=== PATIENT | female | born 1990 | race Caucasian/White ===

== ENCOUNTER 2016-08-22 07:10 | Emergency (ER) | payer OTHER ==
[~2016-08-22] VITALS: Ht 154.9 cm; Wt 83.9 kg
[~2016-08-22 07:10] MED LIST: CIPR500T94 PO; HYDR-79 PO; OXYC-323 PO; SULF1TAB24 PO
[2016-08-22] MEDS ORDERED: METOCLOPRAMIDE HCL 10 MG/2 ML VIAL. IV ONE (07:45)
[2016-08-22] MEDS ORDERED: DIPHENHYDRAMINE 50 MG/ML VIAL IVP ONE (07:45)
[2016-08-22] MEDS ORDERED: IV NORMAL SALINE 1,000ML 1,000 ML IV ONE (07:45)
[2016-08-22] MEDS ORDERED: FENTANYL PF 100 MCG/2 ML VIAL. IV ONE (08:15)
[2016-08-22 08:48] VITALS: BP 104/57
[2016-08-22] MEDS ORDERED: ONDA4TAB10 SL (08:50)
--- NOTE | 2016-08-22 08:57 | ED.ADGEN ---
Past History Past Medical History: Anxiety, Migraines Past Surgical History: Other Smoking: Cigarettes Alcohol Use: None Drug Use: Marijuana Adult General Chief Complaint Chief Complaint migraine HPI HPI Patient is a 25 year old female who presents with migraine headache that started yesterday. Patient had associated nausea with vomiting. She is 10 weeks , . She denies any abdominal pain, vaginal discharge or bleeding. She is attempted her Maxalt at home for her migraine which did not relieve her symptoms. She denies any fevers, reports some sinus congestion, no cough. She has a history of migraines, states this does feel typical. Her pet food deboner is Dr. Martínez Review of Systems Review of Systems Constitutional: Denies fever or chills [] Eyes: Denies change in visual acuity, redness, or eye pain [] HENT: Deniessore throat [] Respiratory: Denies cough or shortness of breath [] Cardiovascular: denies cp GI: Denies abdominal pain, nausea, vomiting, bloody stools or diarrhea [] : Denies dysuria or hematuria [] Musculoskeletal: Denies back pain or joint pain [] Integument: Denies rash or skin lesions [] Neurologic: Denies focal weakness or sensory changes [] Current Medications Current Medications Current Medications Medications (Trade) Dose Ordered Sig/Jam Start Time Stop Time Status Last Admin Dose Admin Diphenhydramine HCl 25 mg 25 mg 1X ONCE 08/22/16 07:45 08/22/16 07:46 DC 08/22/16 08:00 25 MG Fentanyl Citrate (Fentanyl 2ml Vial) 50 mcg 1X ONCE 08/22/16 08:15 08/22/16 08:16 DC 08/22/16 08:11 50 MCG Metoclopramide HCl (Reglan) 10 mg 1X ONCE 08/22/16 07:45 08/22/16 07:46 DC 08/22/16 07:59 10 MG Sodium Chloride (Iv Sodium Chloride 0.9% 1,000ml) 1,000 ml @ 1,000 mls/hr 1X ONCE 08/22/16 07:45 08/22/16 08:44 DC 08/22/16 07:59 1,000 MLS/HR Allergies Allergies Allergies Coded Allergies Type Severity Reaction Last Updated Verified prochlorperazine Allergy Intermediate rash 08/22/16 Yes promethazine Allergy Intermediate rash 08/22/16 Yes Physical Exam Physical Exam Constitutional: Well developed, well nourished, no acute distress, non-toxic appearance.photophobia HENT: Normocephalic, atraumatic, bilateral external ears normal, oropharynx moist, no oral exudates, nose normal. [] Eyes: PERRLA, EOMI, conjunctiva normal, no discharge. [] Neck: Normal range of motion, no tenderness, supple, no stridor. [] Cardiovascular:Heart rate regular with regular rhythm, no murmur [] Lungs & Thorax: Bilateral breath sounds clear to auscultation [] Abdomen: Bowel sounds normal, soft, no tenderness, no masses, no pulsatile masses. [] Skin: Warm, dry, no erythema, no rash. [] Back: No tenderness, no CVA tenderness. [] Extremities: No tenderness, no cyanosis, no clubbing, ROM intact, no edema. [] Neurologic: Alert and oriented X 3, normal motor function, normal sensory function, no focal deficits noted. CN II-XII intact Psychologic: Affect normal, judgement normal, mood normal. [] Current Patient Data Vital Signs Vital Signs Date Time Temp Pulse Resp B/P Pulse Ox O2 Delivery O2 Flow Rate FiO2 08/22/16 08:48 71 20 104/57 99 Room Air 08/22/16 07:10 97.8 EKG EKG [] Radiology/Procedures Radiology/Procedures [] Course & Med Decision Making Course & Med Decision Making Pertinent Labs and Imaging studies reviewed. (See chart for details) said she will get a ride. IV established, IV Benadryl and Reglan given along with 1 L of IV fluids. Patient became anxious after she was given the medications. She is given 50 g of fentanyl and this almost instantaneously made her anxiety resolved. She states her headache resolved and she was discharged in improved condition. She was given few Zofran ODT tablets and instructed to follow-up with OB doctor. Final Impression Final Impression Migraine headache in [] Problems: Dragon Disclaimer Dragon Disclaimer This electronic medical record was generated, in whole or in part, using a voice recognition dictation system. IVONNE HAAS MD Aug 22, 2016 08:57
== END 2016-08-22 08:55 | disposition home or self-care (01) ==
LOC: ER 07:14
DX: O26.891 Other specified pregnancy related conditions, first trimester (principal); G43.909 Migraine, unspecified, not intractable, without status migrainosus; R11.2 Nausea with vomiting, unspecified; O99.331 Smoking (tobacco) complicating pregnancy, first trimester; F12.10 Cannabis abuse, uncomplicated; Z3A.10 10 weeks gestation of pregnancy; Z88.8 Allergy status to other drugs, medicaments and biological substances
CPT/HCPCS: 96361; 96374; 96375; 99284; J1200; J2765; J3010; J7030

== ENCOUNTER 2016-08-23 17:12 | Emergency (ER) | payer OTHER ==
[~2016-08-23] VITALS: Ht 154.9 cm; Wt 68.0 kg
[~2016-08-23 17:12] MED LIST changes: +ONDA4TAB10 SL
[2016-08-23] MEDS: IV NORMAL SALINE 1,000ML 1,000 ML IV ONE ×2 (19:06→19:54)
[2016-08-23] MEDS: DIPHENHYDRAMINE 50 MG/ML VIAL IVP ONE (19:07)
[2016-08-23] MEDS: FENTANYL PF 100 MCG/2 ML VIAL. IV ONE ×3 (19:08→21:21)
[2016-08-23] MEDS: METOCLOPRAMIDE HCL 10 MG/2 ML VIAL. IV ONE (19:09)
[2016-08-23 21:21] VITALS: BP 95/52
--- NOTE | 2016-08-23 22:15 | ED.ADGEN ---
Past History Past Medical History: Anxiety Past Surgical History: Other Smoking: Cigarettes Alcohol Use: None Drug Use: None Adult General HPI HPI Patient is a 25-year-old female presents emergency department complaining of headache. She describes she has had previous migraine headaches identical to this one. The pain is primarily behind her right high. She was seen and treated yesterday for the same complaint. She states that she felt well for a few hours but then her pain gradually increased. She denies any other new injury, trauma, or illness. Review of Systems Review of Systems Constitutional: Denies fever or chills [] Eyes: Denies change in visual acuity, redness, or eye pain [] HENT: Denies nasal congestion or sore throat [] Respiratory: Denies cough or shortness of breath [] Cardiovascular: No additional information not addressed in HPI [] GI: Denies abdominal pain, nausea, vomiting, bloody stools or diarrhea [] : Denies dysuria or hematuria [] Musculoskeletal: Denies back pain or joint pain [] Integument: Denies rash or skin lesions [] Neurologic: Denies headache, focal weakness or sensory changes [] Endocrine: Denies polyuria or polydipsia [] Current Medications Current Medications Current Medications Medications (Trade) Dose Ordered Sig/Jam Start Time Stop Time Status Last Admin Dose Admin Diphenhydramine HCl (Benadryl) 25 mg 1X ONCE 08/23/16 18:30 08/23/16 18:31 DC 08/23/16 19:07 25 MG Fentanyl Citrate (Fentanyl 2ml Vial) 25 mcg 1X ONCE 08/23/16 21:30 08/23/16 21:31 DC 08/23/16 21:21 25 MCG Fentanyl Citrate 50 mcg 50 mcg 1X ONCE 08/23/16 18:45 08/23/16 18:46 DC 08/23/16 19:08 50 MCG Metoclopramide HCl (Reglan) 10 mg 1X ONCE 08/23/16 18:45 08/23/16 18:46 DC 08/23/16 19:09 10 MG Sodium Chloride (Iv Sodium Chloride 0.9% 1,000ml) 1,000 ml @ 1,000 mls/hr 1X ONCE 08/23/16 20:00 08/23/16 20:59 DC 08/23/16 19:54 1,000 MLS/HR Allergies Allergies Allergies Coded Allergies Type Severity Reaction Last Updated Verified metoclopramide Allergy Intermediate anxiety 08/22/16 Yes prochlorperazine Allergy Intermediate rash 08/22/16 Yes promethazine Allergy Intermediate rash 08/22/16 Yes Physical Exam Physical Exam Constitutional: Well developed, well nourished, no acute distress, non-toxic appearance. [] HENT: Normocephalic, atraumatic, bilateral external ears normal, oropharynx moist, no oral exudates, nose normal. [] Eyes: PERRLA, EOMI, conjunctiva normal, no discharge. [] Neck: Normal range of motion, no tenderness, supple, no stridor. [] Cardiovascular:Heart rate regular rhythm, no murmur [] Lungs & Thorax: Bilateral breath sounds clear to auscultation [] Abdomen: Bowel sounds normal, soft, no tenderness, no masses, no pulsatile masses. [] Skin: Warm, dry, no erythema, no rash. [] Back: No tenderness, no CVA tenderness. [] Extremities: No tenderness, no cyanosis, no clubbing, ROM intact, no edema. [] Neurologic: Alert and oriented X 3, normal motor function, normal sensory function, no focal deficits noted. [] Psychologic: Affect normal, judgement normal, mood normal. [] Current Patient Data Vital Signs Vital Signs Date Time Temp Pulse Resp B/P Pulse Ox O2 Delivery O2 Flow Rate FiO2 08/23/16 21:21 70 20 95/52 97 Room Air 08/23/16 17:38 97.9 EKG EKG [] Radiology/Procedures Radiology/Procedures [] Course & Med Decision Making Course & Med Decision Making Pertinent Labs and Imaging studies reviewed. (See chart for details) Again the patient states that her symptoms have resolved after IV fluids, Reglan , oxygen, Benadryl, and fentanyl. Patient was urged to follow-up with her OB/ [facility] or her primary care physician for these headaches. She will of course return emergency department sooner she develops new or worsening symptoms. [] Final Impression Final Impression Migraine headache [] Problems: Dragon Disclaimer Dragon Disclaimer This electronic medical record was generated, in whole or in part, using a voice recognition dictation system. ALICIA CHAVES MD Aug 23, 2016 22:15
== END 2016-08-23 21:31 | disposition home or self-care (01) ==
LOC: ER 17:12
DX: G43.909 Migraine, unspecified, not intractable, without status migrainosus (principal); F41.9 Anxiety disorder, unspecified; F17.210 Nicotine dependence, cigarettes, uncomplicated; Z88.8 Allergy status to other drugs, medicaments and biological substances
CPT/HCPCS: 96361; 96374; 96375; 96376; 99284; J1200; J2765; J3010; J7030

== ENCOUNTER 2016-09-07 18:37 | Emergency (ER) | payer OTHER ==
[~2016-09-07] VITALS: Ht 154.9 cm; Wt 68.0 kg
[2016-09-07 19:20] VITALS: BP 106/57
--- NOTE | 2016-09-07 19:27 | ED.ADGEN ---
Past History Past Medical History: Anxiety, Migraines, Other Past Surgical History: Other Smoking: Cigarettes Alcohol Use: None Drug Use: None Adult General Chief Complaint Chief Complaint ".. I am having my migraine again... Dr. Rodriguez sent me to an neurologist... ".... but they said they could not do anything ...yet. " HPI HPI Patient is a 25 year old female who presents with migraine headache. Follows with Jennifer. Pt. is approx. 12 week gravid. Pt. prior workups for her migraines have been negative. Last CT exam reportedly negative. Patient denies any immunosuppression. Patient denies any travel. No history of trauma. Patient normally healthy, Except for her migraines. Patient states when migraines get this bad she requires fentanyl with Benadryl for treatment. Review of Systems Review of Systems Constitutional: Denies fever or chills [] Eyes: Denies change in visual acuity, redness, or eye pain [] HENT: Denies nasal congestion or sore throat [] Respiratory: Denies cough or shortness of breath [] Cardiovascular: No additional information not addressed in HPI [] GI: Denies abdominal pain, , vomiting, bloody stools or diarrhea [] complaints of nausea : Denies dysuria or hematuria [] Musculoskeletal: Denies back pain or joint pain [] Integument: Denies rash or skin lesions [] Neurologic: Complaints of headache,. Denies focal weakness or sensory changes [ ] Endocrine: Denies polyuria or polydipsia [] Family History Family History Noncontributory Current Medications Current Medications Current Medications Medications (Trade) Dose Ordered Sig/Jam Start Time Stop Time Status Last Admin Dose Admin Diphenhydramine HCl (Benadryl) 50 mg 1X ONCE 09/07/16 20:00 09/07/16 20:01 DC 09/07/16 20:00 50 MG Morphine Sulfate (Morphine 10mg Syringe) 10 mg 1X ONCE 09/07/16 20:00 09/07/16 20:01 DC 09/07/16 20:28 10 MG Ondansetron HCl (Zofran Odt) 8 mg 1X ONCE 09/07/16 20:00 09/07/16 20:01 DC 09/07/16 20:27 8 MG Allergies Allergies Allergies Coded Allergies Type Severity Reaction Last Updated Verified metoclopramide Allergy Intermediate anxiety 08/22/16 Yes prochlorperazine Allergy Intermediate rash 08/22/16 Yes promethazine Allergy Intermediate rash 08/22/16 Yes Physical Exam Physical Exam Constitutional: Moderate distress, non-toxic appearance. [] HENT: Normocephalic, atraumatic, bilateral external ears normal, oropharynx moist, no oral exudates, nose normal. [] Eyes: PERRLA, EOMI, conjunctiva normal, no discharge. [] Neck: Normal range of motion, no tenderness, supple, no stridor. [] Cardiovascular:Heart rate regular rhythm, no murmur [] Lungs & Thorax: Bilateral breath sounds clear to auscultation [] Abdomen: Bowel sounds normal, soft, no tenderness, no masses, no pulsatile masses. [Obese. Gravid. Skin: Warm, dry, no erythema, no rash. [] Back: No tenderness, no CVA tenderness. [] Extremities: No tenderness, no cyanosis, no clubbing, ROM intact, no edema. [] Neurologic: Alert and oriented X 3, normal motor function, normal sensory function, no focal deficits noted. [] DTRs +2 patella and brachial. No drift. Right-hand dominant. [employer] equal. Distal vibratory intact. No Romberg. Psychologic: Affect anxious, judgement normal, mood normal. [] Current Patient Data Vital Signs Vital Signs Date Time Temp Pulse Resp B/P Pulse Ox O2 Delivery O2 Flow Rate FiO2 09/07/16 20:28 Room Air 09/07/16 19:20 98.2 85 20 96 EKG EKG [] Radiology/Procedures Radiology/Procedures [] Course & Med Decision Making Course & Med Decision Making Pertinent Labs and Imaging studies reviewed. (See chart for details). Pt. to keep follow up with primary and ob. May take Zofran 8 mg up 4 x day for marked nausea. Clear fluid diet. Keep follow up with Neurology. Tylenol for pain. Marked pain may take Vicoden up 4 x day. Return if any concerns. [] Final Impression Final Impression 1. Migraine Headache[] 2. Gravid 12 weeks 3. Anxiety Disorder Problems: Dragon Disclaimer Dragon Disclaimer This electronic medical record was generated, in whole or in part, using a voice recognition dictation system. MANNIE GLASS MD Sep 07, 2016 19:27
[2016-09-07] MEDS ORDERED: DIPHENHYDRAMINE 50 MG/ML VIAL IM ONE (20:00)
[2016-09-07] MEDS ORDERED: ONDANSETRON ODT 4 MG TAB.RAPDIS PO ONE (20:00)
[2016-09-07] MEDS ORDERED: MORPHINE SULFATE 10 MG/ML SYRINGE. SQ ONE (20:00)
[2016-09-07] MEDS ORDERED: HYDR1TAB12 PO (20:36)
[2016-09-07] MEDS ORDERED: ONDA8TAB12 PO (20:36)
== END 2016-09-07 20:45 | disposition home or self-care (01) ==
LOC: ER 18:37
DX: O26.891 Other specified pregnancy related conditions, first trimester (principal); G43.909 Migraine, unspecified, not intractable, without status migrainosus; F41.9 Anxiety disorder, unspecified; O99.331 Smoking (tobacco) complicating pregnancy, first trimester; Z3A.12 12 weeks gestation of pregnancy; Z88.8 Allergy status to other drugs, medicaments and biological substances
CPT/HCPCS: 96372; 99284; J1200; J2270; Q0162

== ENCOUNTER → 2017-10-07 | Outpatient (CLI) | payer OTHER ==
[~2017-10-07] MED LIST changes: +HYDR1TAB12 PO; +ONDA8TAB12 PO
--- NOTE | 2017-10-08 09:50 | RAD ---
EXAM: Chest, 2 views. HISTORY: Cough. COMPARISON: None. FINDINGS: Frontal and lateral views of the chest are obtained. There is no infiltrate, effusion or pneumothorax. The heart is normal in size. IMPRESSION: No acute pulmonary finding. Electronically signed by: Judy Brooks MD (10/08/2017 9:47 AM) [id number]
== END | disposition home or self-care (01) ==
LOC: RAD 18:57
PROVIDERS: ATTEND Nurse Practitioner Family
DX: R05 Cough (principal); Z87.891 Personal history of nicotine dependence
CPT/HCPCS: 71046

== ENCOUNTER → 2017-11-12 | Outpatient (CLI) | payer OTHER ==
--- NOTE | 2017-11-12 11:55 | RAD ---
Indication: Dysphagia TECHNIQUE: Grayscale, color Doppler images of the thyroid COMPARISON: None FINDINGS: The isthmus measures 2 mm in thickness and is within normal limits. The left thyroid lobe measures 3.5 x 1.1 x 1.0 cm and is normal in echogenicity without discrete nodules. The right thyroid lobe measures 3.4 x 1.3 x 1.2 cm with an isoechoic nodule measuring 1.5 x 0.9 x 0.7 cm with indistinct margins with mild internal vascularity and without coarse calcifications or cystic components. IMPRESSION: Subtle right thyroid lobe nodule without suspicious features. Follow-up ultrasound in 6 months recommended. Electronically signed by: Asim Casper DO (11/12/2017 11:52 AM) [facility]
== END | disposition home or self-care (01) ==
LOC: US 08:49
PROVIDERS: ATTEND Otolaryngology
DX: E04.1 Nontoxic single thyroid nodule (principal)
CPT/HCPCS: 76536